=== PATIENT | male | born 1945 | race Caucasian/White ===

== ENCOUNTER 2024-08-28 08:01 | Day surgery (SDC) | payer MEDICARE, BC ==
[~2024-08-28 08:01] MED LIST: Sodium Chloride 0.9% 10 ML Syringe FLUSH PRN; Sodium Chloride 0.9% 2.5 ML Syringe FLUSH PRN; Sodium Chloride 0.9% 20 ML SDV IV PRN
[2024-08-28] MEDS: Lactated Ringers 1,000 ML IV SCH (08:30)
[2024-08-28] MEDS ORDERED: propofoL 500 MG/50 ML 50 ML ONE (09:50)
[2024-08-28] MEDS ORDERED: ceFAZolin 1 GM Vial ONE (10:22)
[2024-08-28] MEDS ORDERED: Lidocaine 2% 5 ML SDV ONE (10:25)
== END 2024-08-28 12:01 | disposition home or self-care (01) ==
LOC: MW.SDS 08:01
PROVIDERS: ATTEND Surgery
DX: Z12.11 Encounter for screening for malignant neoplasm of colon (principal); D12.3 Benign neoplasm of transverse colon; D12.5 Benign neoplasm of sigmoid colon; D12.8 Benign neoplasm of rectum; K63.5 Polyp of colon; R19.5 Other fecal abnormalities; I10 Essential (primary) hypertension; E66.9 Obesity, unspecified; Z80.0 Family history of malignant neoplasm of digestive organs; Z68.38 Body mass index [BMI] 38.0-38.9, adult; Z91.040 Latex allergy status; Z79.899 Other long term (current) drug therapy
CPT/HCPCS: 45380; 45381; 45385; 88305; J0690; J2003; J2704; J7120; 00811; 99100